=== PATIENT | female | born 1975 | race Caucasian/White ===

== ENCOUNTER 2023-12-08 09:25 | Outpatient (CLI) | payer OTHER ==
[2023-12-08 11:37] LABS: #Eosinphils 0.1 10x3/uL (0.0-0.5); #Monocytes 0.3 10x3/uL (0.0-1.1); #Neutrophils 2.9 10x3/uL (1.5-8.4); %Basophils 0.9 % (0.0-2.0); %Eosinophils 1.3 % (0.0-6.0); %Lymphocytes 28.5 % (18.0-47.0); %Monocytes 5.5 % (0.0-10.0); %Neutrophils 63.6 % (40.0-75.0); Hematocrit 36.7 % (34.9-44.5); Hemoglobin 12.5 g/dL (12.0-15.5); Mean Corpuscular HGB CONC 34.1 g/dL (32.0-36.0); Mean Corpuscular Hemoglobin 33.7 pg (27.0-33.0); Mean Corpuscular Volume 98.9 fl (81.6-98.3); Mean Platelet Volume 10.4 fl (7.4-10.4); Platelet Count 276 10x3/uL (150-450); RBC Distribution Width 11.9 % (11.5-14.5); Red Blood Cell (RBC) Count 3.71 10x6/uL (3.90-5.03); White Blood Cell (WBC) Count 4.5 10x3/uL (3.5-10.5)
[2023-12-08 11:59] LABS: BHCG - Serum Negative (NEGATIVE); Pregs Control Background? CLEAR/WHITE (CLR/WHITE); Pregs Control Bar Appear? YES (CONTROL BAR)
[2023-12-08 12:05] LABS: Anion Gap 17 mmol/L (10-20); BUN (Urea Nitrogen) 9 mg/dL (7.0-18.7); Calc. Creatinine Clearance 0 mL/min (70-130); Calcium 9.1 mg/dL (7.8-10.44); Carbon Dioxide 21 mmol/L (22-29); Chloride 104 mmol/L (98-107); Estimated GFR 78; Glucose 96 mg/dL (70-105); Potassium 4.7 mmol/L (3.5-5.1); Sodium 137 mmol/L (136-145)
== END 2023-12-08 09:26 | disposition home or self-care (01) ==
LOC: LABBT 09:25
PROVIDERS: ATTEND Specialist
DX: Z01.812 Encounter for preprocedural laboratory examination (principal); K62.1 Rectal polyp
CPT/HCPCS: 80048; 84703; 85025

== ENCOUNTER 2023-12-10 06:03 | Day surgery (SDC) | payer OTHER ==
[2023-12-08 09:49] VITALS: BMI 23.8
[2023-12-10] MEDS ORDERED: Acetaminophen 500 MG TAB ONE (06:19)
[2023-12-10] MEDS ORDERED: CEFAZOLIN 2 GM VIAL ONE (06:19)
[2023-12-10] MEDS ORDERED: Sodium Chloride 0.9% 100 ML ONE (06:19)
[2023-12-10] MEDS ORDERED: Ketorolac Tromethamine 30 MG (1 mL) VIAL ONE ×2 (06:19→08:40)
[2023-12-10] MEDS ORDERED: Bupivacaine 0.25% HCL 30 ML VIAL ONE (06:48)
[2023-12-10] MEDS ORDERED: EPINEPHrine 1 MG/ML VIAL ONE (06:48)
[2023-12-10] MEDS ORDERED: PROPOFOL 20 ML ONE (06:55)
[2023-12-10] MEDS ORDERED: fentaNYL 50 mcg/mL 1 mL Vial ONE (06:55)
[2023-12-10] MEDS ORDERED: SUCCINYLCHOLINE/SOD CL,ISO/PF 200 MG/10 ML SYRINGE FS ONE (06:55)
[2023-12-10] MEDS ORDERED: Ondansetron PF 4 MG/2 ML Vial ONE ×2 (06:55→07:53)
[2023-12-10] MEDS ORDERED: Lidocaine 1% PF 5 ML VIAL ONE (06:55)
[2023-12-10] MEDS ORDERED: Dexamethasone 4 mg/ml Vial ONE (06:55)
[2023-12-10] MEDS ORDERED: Rocuronium Bromide 10 MG/ML (10ML VIAL) ONE (06:55)
[2023-12-10] MEDS ORDERED: Dexamethasone 20 MG/5 ML VIAL ONE (07:53)
== END 2023-12-10 10:00 | disposition home or self-care (01) ==
LOC: SDC 06:03
PROVIDERS: ATTEND Specialist
PROC: 0DBP7ZZ Excision of Rectum, Via Natural or Artificial Opening (ICD-10-PCS; principal; 2023-12-10)
DX: K62.1 Rectal polyp (principal); M19.90 Unspecified osteoarthritis, unspecified site; G89.29 Other chronic pain; Z90.49 Acquired absence of other specified parts of digestive tract; Z98.890 Other specified postprocedural states; Z88.2 Allergy status to sulfonamides; Z79.899 Other long term (current) drug therapy
CPT/HCPCS: 88305; J0171; J0665; J1100; J1885; J2405; J2704; J3010; J3490

== ENCOUNTER 2024-04-25 10:11 | Outpatient (CLI) | payer OTHER ==
[2024-04-25] MEDS ORDERED: Iopamidol 370 76% 100 ML VIAL ONE (10:13)
== END 2024-04-25 10:12 | disposition home or self-care (01) ==
LOC: BICCT 10:11
PROVIDERS: ATTEND Internal Medicine
DX: R10.11 Right upper quadrant pain (principal); Z90.49 Acquired absence of other specified parts of digestive tract
CPT/HCPCS: 74178; Q9967